=== PATIENT | female | born 1995 | race Caucasian/White ===

== ENCOUNTER 2019-12-05 19:12 | Emergency (ER) | payer OTHER ==
[2019-12-05 19:19] VITALS: BP 127/74; PULSE 93; TEMP 98; BMI 33.3
--- NOTE | 2019-12-05 20:26 | PDOC ---
History of Present Illness - General Chief Complaint: Head/Neck problem Stated Complaint: NUMBS ON LEFT SIDE Time Seen by Provider: 12/05/19 20:06 History Source: Patient - History of Present Illness Timing/Duration: reports: other (yesterday) Past History - Past Medical History Allergies/Adverse Reactions: Allergies Allergy/AdvReac Type Severity Reaction Status Date / Time No Known Allergies Allergy Verified 12/05/19 19:19 COPD: No - Psycho Social/Smoking Cessation Hx Smoking History: Never smoked Review of Systems - Review of Systems Constitutional: No: Chills, Fever Respiratory: No: Shortness of Breath Cardiac (ROS): No: Chest Pain, Palpitations ABD/GI: No: Nausea, Vomiting, Abdominal cramping : No: Dysuria Neurological: Yes: Numbness. No: Headache, Tingling, Weakness, Dizziness *Physical Exam - Vital Signs Last Vital Signs Temp Pulse Resp BP Pulse Ox 98.0 F 93 H 18 127/74 100 12/05/19 19:16 12/05/19 19:16 12/05/19 19:16 12/05/19 19:16 12/05/19 19:16 - Physical Exam General Appearance: Yes: Appropriately Dressed. No: Apparent Distress HEENT: positive: EOMI, ADAM, Normal ENT Inspection, Normal Voice, TMs Normal, Pharynx Normal, Other (no obvious abnl on limited fundos exam). negative: Scleral Icterus (R), Scleral Icterus (L) Neck: positive: Supple Respiratory/Chest: positive: Lungs Clear, Normal Breath Sounds. 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 negative: Facial Droop Medical Decision Making - Medical Decision Making 12/05/19 20:04 24 yo F, , ~11 weeks , no issues w/ so far, p/w L shoulder numbness that started yesterday afternoon and has been constant. Also complaining of possible left nares congestion and left ear discomfort. No headache, dizziness, visual changes, slurred speech or focal weakness. See exam Isolated L facial numbness in 1st trimester preg Exam only remarkable for decreased sensation to L face on exam, no deficit otherwise CVA unlikely, no e/o abarca's at this time Patient also evaluated by Dr. Stanford who recommends discussion with neuro for further rec/follow-up Case discussed with Dr. Montes of neuro who does not recommend any neuroimaging or steroids at this time, states patient can follow-up with him in clinic this week Discharge - Discharge Information Problems reviewed: Yes Clinical Impression/Diagnosis: Left facial numbness Condition: Good Disposition: HOME - Follow up/Referral Referrals: Jimmy Elias MD [Primary Care Provider] - Bill Navas MD [Staff Physician] - - Patient Discharge Instructions Additional Instructions: Cause of your symptoms are unclear but we do not suspect stroke at this time. Please follow-up with Dr. Navas at If symptoms worsen in the interim as discussed, please return to ER immediately - Post Discharge Activity
== END 2019-12-05 21:17 | disposition home or self-care (01) ==
LOC: JER 19:12
DX: O99.89 Other specified diseases and conditions complicating pregnancy, childbirth and the puerperium (principal); O99.351 Diseases of the nervous system complicating pregnancy, first trimester; R20.0 Anesthesia of skin; Z3A.11 11 weeks gestation of pregnancy
CPT/HCPCS: 99283-25

== ENCOUNTER 2019-12-12 01:21 | Emergency (ER) | payer OTHER ==
[2019-12-12 01:29] VITALS: BP 127/76; PULSE 89; TEMP 98; BMI 33.3
--- NOTE | 2019-12-12 01:33 | PDOC ---
Attending Attestation - Resident Resident Name: Samara Manrique - ED Attending Attestation I have performed the following: I have examined & evaluated the patient, The case was reviewed & discussed with the resident, I agree w/resident's findings & plan - HPI HPI: 12/12/19 02:19 Pt is 12 weeks with vag bleed. SHe has normal Hb/HCT - Physicial Exam PE: 12/12/19 02:21 Agree with resident exam - Medical Decision Making 12/12/19 03:41 Patient Name: SHAHEED MCNULTY THIS IS A PRELIMINARY REPORT FROM [facility] DATE OF SERVICE: 2019-12-12 01:26:40 IMAGES: 35 EXAM: <14WKS US and pelvic duplex HISTORY: Vaginal bleeding COMPARISON: None. FINDINGS: Pelvic ultrasound:Uterus is midline and measures 14.7centimeters in length. There is a single live IUP with estimated gestational age of 13weeks and 3days. There is a normal heart rate of 148beats per minute. There is a small proximal subchorionic bleed. The right ovary measures 3.0centimeters in length and contains a 2.3 cm cyst. The left ovary measures 3.0centimeters in length and appears normal. There is no significant free fluid. Pelvic duplex: There is normal arterial and venous flow in both ovaries. IMPRESSION: Estimated age 13 weeks and 3 days. Small proximal subchorionic bleed. 2.3 cm right ovarian cyst, possibly a corpus luteum, without torsion or free fluid. 12/12/19 06:26 Blood type RH positive 12/12/19 06:27 Pt had leuk esterase in the urine, but no bacteria and barely WBC, adn she has a lot of blood. We will not treat for UTI.
[2019-12-12 02:08] LABS: BASO % 0.4 % (0-2.0); EOS % 0.6 % (0-4.5); HEMATOCRIT 36.4 % (32.4-45.2); HEMOGLOBIN 12.4 GM/dL (10.7-15.3); LYMPH % 22.7 % (8-40); MEAN CELL VOLUME 88.3 fl (80-96); MEAN PLT VOLUME 9.9 fl (7.5-11.1); MONO % 9.1 % (3.8-10.2); NEUT % 67.2 % (42.8-82.8); PLATELET COUNT 193 K/MM3 (134-434); RBC 4.12 M/mm3 (3.60-5.2); RDW 13.4 % (11.6-15.6); WHITE BLOOD COUNT 10.6 K/mm3 (4.0-10.0)
[2019-12-12 02:39] LABS: ALBUMIN 3.2 g/dl (3.4-5.0); BILIRUBIN,TOTAL 0.1 mg/dL (0.2-1); BLOOD UREA NITROGEN 7.5 mg/dL (7-18); CALCIUM 9.4 mg/dL (8.5-10.1); CREATININE 0.5 mg/dL (0.55-1.3); POTASSIUM 3.9 mmol/L (3.5-5.1); TOT PROT 6.9 g/dl (6.4-8.2)
--- NOTE | 2019-12-12 02:43 | PDOC ---
History of Present Illness - General Chief Complaint: Vaginal Bleeding Stated Complaint: VAGINAL BLEED/12WKS Time Seen by Provider: 12/12/19 01:26 History Source: Patient Exam Limitations: No Limitations - History of Present Illness Initial Comments: 12/12/19 02:40 24y F w at 12w gestation, no significant PMH presenting to ED with complaints of vaginal bleeding that started today at 0100. Pt states she has used 1 pad so far, no clots. She did not have this problem with her previous . She says when she had her first sonogram, she was told that she had a "placental hemorrhage". Denies cramping, abdominal pain, n/v/d, back pain, fevers, chills, injury, trauma. PMD: Ob: [facility] PMH: none PSH: none Meds: none Allergies: nkda Past History - Past Medical History Allergies/Adverse Reactions: Allergies Allergy/AdvReac Type Severity Reaction Status Date / Time No Known Allergies Allergy Verified 12/12/19 01:27 Home Medications: Ambulatory Orders Cephalexin Monohydrate [Keflex -] 500 mg PO Q6H #20 capsule 12/12/19 COPD: No - Reproductive History Is Patient Now?: Yes (#): 2 Para: 1 Cervical CA: No Dysfunctional Uterine Bleeding: No Ectopic : No Endometrial CA: No Polycystic Ovaries: No Therapeutic (s) & number: No Tubal Ligation: No Spontaneous : 0 - Psycho Social/Smoking Cessation Hx Smoking History: Never smoked Hx Alcohol Use: No Drug/Substance Use Hx: No Review of Systems - Review of Systems Constitutional: No: Symptoms Reported HEENTM: No: Symptoms Reported Respiratory: No: Symptoms reported Cardiac (ROS): No: Symptoms Reported ABD/GI: No: Symptoms Reported : Yes: See HPI Musculoskeletal: No: Symptoms Reported Integumentary: No: Symptoms Reported Neurological: No: Symptoms reported *Physical Exam - Vital Signs Last Vital Signs Temp Pulse Resp BP Pulse Ox 98.0 F 89 18 127/76 98 12/12/19 01:23 12/12/19 01:23 12/12/19 01:23 12/12/19 01:23 12/12/19 01:23 - Physical Exam General Appearance: Yes: Nourished, Appropriately Dressed. No: Apparent Distress HEENT: positive: EOMI, ADAM, Normal ENT Inspection Neck: positive: Trachea midline, Supple Respiratory/Chest: positive: Lungs Clear, Normal Breath Sounds Cardiovascular: positive: Regular Rhythm, Regular Rate Female Pelvic Exam: positive: normal external exam, cervical os closed, vaginal bleeding Gastrointestinal/Abdominal: positive: Normal Bowel Sounds, Soft. 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 vitals wnl miscarriage v. not miscarriate. low suspicion for abruption. -tvus, ts, cbc,cmp, bquant -ua, ucx Pelvic ultrasound:Uterus is midline and measures 14.7centimeters in length. There is a single live IUP with estimated gestational age of 13weeks and 3days. There is a normal heart rate of 148beats per minute. There is a small proximal subchorionic bleed. The right ovary measures 3.0centimeters in length and contains a 2.3 cm cyst. The left ovary measures 3.0centimeters in length and appears normal. There is no significant free fluid. \\ report provided to patient 12/12/19 04:30 B+. UA shows LE, 5 dario. will treat. advise to f/u with ob and/or ER. Given return precautions. Discharge - Discharge Information Problems reviewed: Yes Clinical Impression/Diagnosis: Vaginal bleeding, Asymptomatic bacteriuria Subchorionic hemorrhage Qualifiers: Fetus number: single or unspecified fetus Trimester: first trimester Qualified Code(s): O41.8X10 - Other specified disorders of amniotic fluid and membranes, first trimester, not applicable or unspecified Condition: Good Disposition: HOME - Admission No - Additional Discharge Information Prescriptions: Cephalexin Monohydrate [Keflex -] 500 mg PO Q6H #20 capsule - Follow up/Referral Referrals: Jimmy Elias MD [Primary Care Provider] - - Patient Discharge Instructions Patient Printed Discharge Instructions: DI for Vaginal Bleeding During Additional Instructions: You were seen in for vaginal bleeding. The ultrasound results were given to you. I recommend that you follow up with your Ob this week, preferably in 2 days. If you cannot see your Ob, please come back to the ER for repeat blood testing. Please take the antibiotic as directed. Please come back to the emergency room if you have worsening bleeding (more than 1 pad per hour), feel dizzy or if any new or concerning symptom develops. Thank you - Post Discharge Activity Work/Back to School Note: Back to Work
[2019-12-12 04:14] LABS: URINE APPEARANCE CLOUDY; URINE COLOR RED
[2019-12-12 04:15] LABS: EPI CELLS 9.6 /HPF (0-5/HPF); HYALINE CASTS 7 /lpf (0-8); PH,URINE 5.5 (5.0-8.0); URINE BACTERIA 6.9 /hpf (NEGATIVE); URINE BILIRUBIN NEGATIVE (NEGATIVE); URINE GLUCOSE (UA) NEGATIVE (NEGATIVE); URINE KETONE NEGATIVE (NEGATIVE); URINE LEUK ESTERASE 1+ (NEGATIVE); URINE NITRITE NEGATIVE (NEGATIVE); URINE PROTEIN 1+ (NEGATIVE); URINE RBC 659 /hpf (0-4); URINE UROBILINOGEN 0.2 mg/dL (0.2-1.0); URINE WBC 5 /hpf (0-5)
== END 2019-12-12 04:28 | disposition home or self-care (01) ==
LOC: JER 01:21
DX: O26.891 Other specified pregnancy related conditions, first trimester (principal); O46.91 Antepartum hemorrhage, unspecified, first trimester; O41.8X10 Other specified disorders of amniotic fluid and membranes, first trimester, not applicable or unspecified; R82.71 Bacteriuria; Z3A.13 13 weeks gestation of pregnancy
CPT/HCPCS: 36415; 76801-TC; 80053; 81003; 84702; 85025; 86850; 86900; 86901; 87086; 99284-25